=== PATIENT | female | born 1955 | race Caucasian/White ===

== ENCOUNTER → 2020-05-19 | Outpatient (CLI) | payer OTHER ==
[~2020-05-19] MED LIST: ABILIFY 2 MG2 MG PO; ACETAMINOP160 MG/12 PER TUBE; ATIVAN1 MG PO; AUGMENTIN 500-1 EACH PO; AZASAN75 MG; BACTRIM DS TAB1 EACH PO; CARAFATE 11 GM/10 M1 PO; CENTRUM SILVER1 EAC2 PO; CENTRUM SILVER1 EAC4 PO; CLONIDINE0.1 PO; GABAPENTIN 100100 MG PO; KLOR-CON 10 ER10 MEQ PO; MELATIN3 MG PO; NOHOMEMEDICATIONS; PANTOPRAZOLE SO40 M1 PO; PAXIL40 MG PO; PHENERGAN 25 MG25 M1 PO; PRILOSEC 10MG C10 MG PO; PROTONIX40 MG PO; REMERON15 MG PO; REMERON30 MG PO; THIAMINE HCL100 MG PO; TRINATE TABLET1 TAB PO; TUMS PO; TYLENOL325 MG PO; ZANTAC 150MG T150 M1 PO; ZOFRAN 4 MG ORAL4 M1 DIS
== END ==
LOC: LAB 05-15 10:25
PROVIDERS: ATTEND Anesthesiology
DX: Z01.812 Encounter for preprocedural laboratory examination (principal); Z11.59 Encounter for screening for other viral diseases

== ENCOUNTER 2020-07-12 04:53 | Emergency (ER) | payer OTHER ==
[~2020-07-12] VITALS: Ht 157.5 cm; Wt 43.1 kg
[2020-07-12] MEDS ORDERED: MOBIC15 MG PO (05:32)
[2020-07-12 05:53] VITALS: BP 131/90
== END 2020-07-12 05:54 | disposition home or self-care (01) ==
LOC: ER 04:53
DX: S93.402A Sprain of unspecified ligament of left ankle, initial encounter (principal); Z79.899 Other long term (current) drug therapy; Z88.5 Allergy status to narcotic agent; X50.1XXA Overexertion from prolonged static or awkward postures, initial encounter; Y93.89 Activity, other specified; Y92.89 Other specified places as the place of occurrence of the external cause; Y99.8 Other external cause status

== ENCOUNTER → 2021-01-01 | Outpatient (CLI) | payer OTHER ==
[~2021-01-01] MED LIST changes: +MOBIC15 MG PO
== END ==
LOC: LAB 09:35
PROVIDERS: ATTEND Anesthesiology
DX: Z01.812 Encounter for preprocedural laboratory examination (principal); Z20.822 Contact with and (suspected) exposure to COVID-19